=== PATIENT | male | born 1990 | race Caucasian/White ===

== ENCOUNTER 2017-09-29 21:52 | Emergency (ER) | payer SELFPAY ==
[2017-09-29 22:29] VITALS: BP 101/65; PULSE 60; RESP 20; TEMP 98.2; O2SAT 98
--- NOTE | 2017-09-29 23:22 | C.PDOC ---
History Of Present Illness 27 year old male presents to the ED for evaluation of an old laceration scar in his forehead. Patient states he bought Mederma OTC scar cream to use it in his scar. Patient noticed the area around his scar appeared to be red. Patient stopped using the cream and came to the ED for evaluation. Patient denies fever , chills, nausea, vomit, rash. Time Seen by Provider: 09/29/17 22:41 Chief Complaint (Nursing): Abnormal Skin Integrity History Per: Patient History/Exam Limitations: no limitations Onset/Duration Of Symptoms: Days Current Symptoms Are (Timing): Still Present Location Of Injury: Anterior: Forearm Quality Of Symptoms: Other Severity: None Recent travel outside of the [place]: No Additional History Per: Patient Past Medical History Reviewed: Historical Data, Nursing Documentation, Vital Signs Vital Signs: Last Vital Signs Temp 98.2 F 09/29/17 22:24 Pulse 60 09/29/17 22:24 Resp 20 09/29/17 23:27 BP 101/65 09/29/17 22:24 Pulse Ox 98 09/30/17 01:48 - Medical History PMH: No Chronic Diseases Surgical History: No Surg Hx Family History: States: Unknown Family Hx - Social History Hx Alcohol Use: No Hx Substance Use: No Review Of Systems Constitutional: Negative for: Fever Skin: Negative for: Rash Neurological: Negative for: Weakness, Numbness Physical Exam - Physical Exam Appears: Non-toxic, No Acute Distress Skin: Normal Color, Warm, Dry Head: Atraumatic, Normacephalic, No Swelling, Other (keloid scar over forehead, no erythema, warmth, fluctuance, swelling) Eye(s): bilateral: Normal Inspection Ear(s): Bilateral: Normal Nose: No Discharge Oral Mucosa: Moist Throat: Normal, No Erythema, No Exudate Neck: Normal ROM, Supple Neurological/Psych: Oriented x3 Gait: Steady ED Course And Treatment O2 Sat by Pulse Oximetry: 98 (On RA) Pulse Ox Interpretation: Normal Progress Note: Patient is resting comfortably, and is in no acute distress. Patient was instructed to follow up with PMD in 1-2 days for further evaluation. Disposition Counseled Patient/Family Regarding: Diagnosis, Need For Followup, Rx Given - Disposition Referrals: [facility] [Outside] Disposition: HOME/ ROUTINE Disposition Time: 23:20 Condition: STABLE Additional Instructions: Please follow up in clinic Return to ER as needed Instructions: Keloids Forms: Accompanied To ED By:, [employer] (Armenian) Print Language: TOGOLESE - Clinical Impression Clinical Impression: Keloid scar - PA / [employer] / Resident Statement MD/DO has reviewed & agrees with the documentation as recorded. - Scribe Statement The provider has reviewed the documentation as recorded by the Scribe Chance Franks All medical record entries made by the Scribe were at my direction and personally dictated by me. I have reviewed the chart and agree that the record accurately reflects my personal performance of the history, physical exam, medical decision making, and the department course for this patient. I have also personally directed, reviewed, and agree with the discharge instructions and disposition.
== END 2017-09-29 23:27 | disposition home or self-care (01) ==
LOC: C.ER 21:52
DX: L91.0 Hypertrophic scar (principal)